=== PATIENT | female | born 1925 | race Caucasian/White ===

== ENCOUNTER 2016-05-22 01:07 | Inpatient (IN) | payer OTHER ==
[~2016-05-22] VITALS: Ht 154.9 cm; Wt 77.1 kg
[~2016-05-22 01:07] MED LIST: AMLODIPINE BESYL5 M1 PO; ASPIRIN EC81 M1 PO; CLARITIN-D 241 EACH PO; DIOVAN320 M1 PO; MYRBETRIQ50 M1 PO; VICODIN 5-3001 EACH PO
[2016-05-22] MEDS ORDERED: DILAUDID2 M1 PO (13:13)
[2016-05-22] MEDS ORDERED: COLACE100 M1 PO (13:14)
[2016-05-22] MEDS ORDERED: MIRALAX17 G1 PO (13:14)
[2016-05-22] MEDS ORDERED: PRILOSEC OTC20 M1 PO (13:15)
[2016-05-22] MEDS ORDERED: ASPIRIN EC325 M2 PO (13:15)
--- NOTE | 2016-05-22 13:21 | Patient Discharge Instructions ---
Discharge Instructions General Discharge Information You were seen/treated for: RIGHT HIP PAIN You had these procedures: RIGHT HIP REPLACEMENT Watch for these problems: TEMP. GREATER THAN 101.5, SWELLING , REDNESS, DRAINAGE FROM INCISION. INCREASED PAIN OR INABILITY TO AMBULATE. Do not soak the wound: Yes Daily wet to dry dressings: No No bath, but you may shower: Yes Special Instructions: KEEP WOUND/ DRESSING DRY Diet Continue normal diet: Yes Recommended Diet: Regular DAILY Calorie limit of: 10 Activity Full Activity/No Limits: Yes Activity Self Limited: No Pounds, do NOT lift more than: 10 Activity Limited to: Weight bear as tolerated Acute Coronary Syndrome Inclusion Criteria At DC or during hospital stay patient has or had the following: ACS DIAGNOSIS No Discharge Core Measures Meds if any: Prescribed or Continued at Discharge Meds if any: NOT Prescribed or Continued at Discharge Congestive Heart Failure Inclusion Criteria At DC or during hospital stay patient has or had the following: CHF DIAGNOSIS No Discharge Core Measures Meds if any: Prescribed or Continued at Discharge Meds if any: NOT Prescribed or Continued at Discharge Cerebrovascular accident Inclusion Criteria At DC or during hospital stay patient has or had the following: CVA/TIA Diagnosis No Discharge Core Measures Meds if any: Prescribed or Continued at Discharge Meds if any: NOT Prescribed or Continued at Discharge Venous thromboembolism Inclusion Criteria VTE Diagnosis No VTE Type NONE VTE Confirmed by (Test) NONE Discharge Core Measures - Per Current guidelines, there needs to be overlap - treatment for the first 5 days of Warfarin therapy. - If discharged on Warfarin prior to 5 days of - overlap therapy, the patient will need to be - assessed for post discharge needs including - *Post discharge parental anticoagulation - *Warfarin and/or parental anticoagulation education - *Follow up date to check INR post discharge At least 5 days overlap therapy as Inpatient No Meds if any: Prescribed or Continued at Discharge Warfarin No Note: Overlap Therapy is Warfarin and Anticoagulant Meds if any: NOT Prescribed or Continued at Discharge
--- NOTE | 2016-05-22 13:25 | Admission Core Measures ---
Admission Meds I reviewed the following Meds: Current Medications Sig/Yamini Start time Last Medication Dose Stop Time Status Admin Acetaminophen 975 MG ONE 05/22 AC (Tylenol) 05/22 2358 Amlodipine Besylate 5 MG DAILY 05/23 999 AC (Norvasc) Cefazolin Sodium 2,000 MG ONE 05/22 NR (Kefzol-Ancef Inj) 05/22 2358 Loratadine 10 MG DAILY 05/23 999 AC (Claritin) Losartan Potassium 100 MG DAILY 05/23 999 AC (Cozaar) Mirabegron 50 MG DAILY 05/23 1000 AC (Myrbetriq) Oxycodone HCl 10 MG ONE 05/22 AC (Roxicodone) 05/22 2358 Acute Coronary Syndrome Inclusion Criteria ACS Diagnosis No Inpatient Core Measures LDL Reminder: If No, please order W/I first 24hr of stay Congestive Heart Failure Inclusion Criteria CHF Diagnosis No Cerebrovascular accident Inclusion Criteria CVA/TIA Diagnosis No Inpatient Core Measures Bedside Swallow Eval Reminder: If BSE failed, place ST order Antithrombotic Reminder: Order Antithrombotic Medication by end of day 2 Antithrombotic Reminder: Document Reason Antithrombotic Not ordered by end of day 2 AFIB/Flutter Reminder: If Present, add to problem list AFIB/Flutter Reminder: Order Anticoag Medication for pts with AFIB/Flutter Atherosclerosis Reminder: If Present, add to problem list LDL Reminder: If No, please order W/I first 24hr of stay PT Order Reminder: If No, please order Venous thromboembolism Inpatient Core Measures VTE Risk Factors: Age > 40, Surgery No [facility] VTE prophylaxis d/t No contraindications No VTE Pharm Prophylaxis d/t No contraindications Inclusion Criteria - Per Current guidelines, there needs to be overlap - treatment for the first 5 days of Warfarin therapy. - Parenteral Anticoagulation (IV or SC) needs to be - given along with Warfarin therapy. VTE Diagnosis No VTE Type NONE VTE Confirmed by (Test) NONE Problem List As ranked by this Provider includes Assessment & Plan 1. Unilateral primary osteoarthritis, right hip HOME MEDS Home Med List Amlodipine Besylate 5 MG TABLET 1 TAB PO DAILY HTN (Reported) Aspirin (Ecotrin*) 81 MG TABLET.DR 1 TAB PO DAILY PROPHO (Reported) Hydrocodone/Acetaminophen (Vicodin 5-300 MG Tablet) 5 MG-300 MG TABLET 1 TAB PO Q4-6 PRN PAIN (Reported) Loratadine/Pseudoephedrine (Claritin-D 24 Hour Tablet) 10 MG-240 MG TAB.ER.24H 1 TAB PO DAILY ALLERGIES (Reported) Mirabegron (Myrbetriq) 50 MG TAB.ER.24H 1 TAB PO DAILY URINARY INCONTINENCE ( Reported) Valsartan (Diovan) 320 MG TABLET 1 TAB PO DAILY HTN (Reported)
--- NOTE | 2016-05-22 13:32 | Surgical Discharge Summary ---
Visit Information Visit Dates Admission Date: 05/22/16 Discharge Date: 05/25/16 History of Present Illness Chief Complaint: 89 Y O FEMALE WITH OA PRESENTED FOR ELECTIVE HIP REPLACEMENT Surgical History Pertinent Surgical History: non-contributory Review of Systems: SEE h&p Hospital Course Course Attending Physician: ANGELA BAXTER MD Primary Care Physician: MELANI BLEVINS,[facility] Course: 89 Y O FEMALE WITH OA RIGHT HIP PRESENTED FOR ELECTIVE HIP REPLACEMENT HER HOSPITAL COURSE WAS UNCOMPLICATED. SHE WAS HEMODYNAMICALLY STABLE WITH ACCEPTABLE VITAL SIGNS.HER DIET WAS PROGRESSED TO SOLID FOOD WHICH SHE TOLERATED WELL.SHE WAS VOIDING SPONTANEOUSLY. HER PAIN WAS CONTROLLED WITH ORAL dILAUDID.PATIENT'S HIP INCISION WAS C/D/I .THERE WAS NO DRAINAGE OR ERYTHREMA . NEUROVASCULAR ASESSMENT WAS WNL.pOST OP CBC IS UNREMARKABLE. PATIENT WAS EVALUATED BY PHYSICAL THERAPY FOR DISCHARGE DISPOSITION.PT. IS SLOW TO MOBILIZE, REQUIRES ASSISSTANCE OF 2 WITH BELOW BASELINE ACTIVITY.sHE REQUIRES SHORT TERM REHAB. TO INCREASE STRENGTH AND ENDURANCE. Allergies: Coded Allergies: Sulfa (Sulfonamide Antibiotics) (CHILDHOOD 05/19/16) Disposition Summary Disposition Principal Diagnosis: R HIP UNILATERAL PRIMARY OSTEOARTHRITIS Additional Diagnosis: NONE Discharge Disposition: SNF Discharge Instructions General Discharge Information Code Status: Full Code Patient's Diet: REGULAR, ADVANCE TOLERATED Patient's Activity: AMBULATE TOLERATED, WEIGHT BEARING TOLERATED Follow-Up Instructions/Appts: F/U IN [address] BAXTER Medications at Discharge Discharge Medications: Stop taking the following medications: Aspirin (Ecotrin*) 81 MG TABLET.DR ORAL DAILY Hydrocodone/Acetaminophen (Vicodin 5-300 MG Tablet) 5 MG-300 MG TABLET ORAL EVERY 4-6 HOURS as needed for PAIN Continue taking these medications: Mirabegron (Myrbetriq) 50 MG TAB.ER.24H 1 Tablet ORAL DAILY Valsartan (Diovan) 320 MG TABLET 1 Tablet ORAL DAILY Amlodipine Besylate (Amlodipine Besylate) 5 MG TABLET 1 Tablet ORAL DAILY Loratadine/Pseudoephedrine (Claritin-D 24 Hour Tablet) 10 MG-240 MG TAB.ER.24H 1 Tablet ORAL DAILY Start taking the following new medications: Hydromorphone HCl (Dilaudid) 2 MG TABLET 1-2 Tablet ORAL EVERY 4 HRS as needed for NEEDED FOR PAIN Qty = 36 No Refills Docusate Sodium (Colace) 100 MG CAPSULE 1 Capsule ORAL TWICE DAILY Qty = 14 No Refills Polyethylene Glycol 3350 (Miralax) 17 GRAM POWD.PACK 1 Packet ORAL DAILY Qty = 7 No Refills Instructions: dissolve in water Aspirin (Ecotrin*) 325 MG TABLET.DR 1 Tablet ORAL TWICE DAILY Qty = 60 No Refills Omeprazole Magnesium (Prilosec Otc) 20 MG TABLET.DR 1 Tablet ORAL DAILY Qty = 30 No Refills
--- NOTE | 2016-05-22 15:04 | RADIOLOGY REPORT ---
EXAMINATION: XR HIP, RIGHT CLINICAL INFORMATION: Status post right hip replacement. COMPARISON: None TECHNIQUE: Two views of the right hip. FINDINGS: Status post right hip replacement. Orthopedic components in alignment. Surgical suture in the soft tissues around the hip. There is some air in the soft tissue related to the recent surgery. IMPRESSION: Status post right hip replacement.
[2016-05-22 16:00] VITALS: BP 124/64
--- NOTE | 2016-05-22 16:00 | NUR ---
PT ARRIVED FROM PACU AT 1600 VIA STRETCHER. UPON ASSESSMENT, PT A/V/OX3. ON RA, LUNGS CLEAR. SKIN INTACT. DRESSING TO R HIP INTACT, HEMOVAC IN PLACE. +PULSES, +CMS. PAIN /10. ICE TO R HIP. DAKOTAH DC'D AT 1530, DTV [phone]. VITAL SIGNS STABLE. #22 TO RW WITH D51/2NS @75 INFUSING PER EMAR. ORIENTED TO CALL RECINOS, ROOM & SURROUNDINGS. WILL CONTNUE TO MONITOR.
--- NOTE | 2016-05-22 16:01 | Operative Report ---
Operative/Inv Procedure Report Surgery Date: 05/22/16 Name of Procedure: Right total hip replacement Pre-Operative Diagnosis: Primary right hip DJD Post-Operative Diagnosis: Same Estimated Blood Loss: 250 Surgeon/Composite Worker: VEE BLEVINS,ANGELA Stewart Anesthesia: block Operative/Procedure Note Note: Description of Procedure: The patient was taken to the operating room and positively identified. After induction of spinal anesthesia and administration of appropriate pre-operative antibiotics, the patient was positioned supine on the operating room table and all bony prominences were well padded. After performing a surgical timeout, the right lower extremity was prepped and draped in the usual sterile fashion. A direct anterior approach was made to the right hip. The incision was carried sharply through superficial soft tissues to the level of the fascia. Meticulous hemostasis was maintained with Bovie electocautery. The fascia over the tensor fascia sky muscle was opened sharply and the interval between the TFL and the sartorius was entered bluntly taking care to stay lateral to the lateral femoral cutaneous nerve. Retractors were placed around the femoral neck and the pericapsular fat was identified. The ascending branches of the lateral femoral circumflex vessels were identified and carefully coagulated. The pericapsular fat and anterior capsule were then resected. A napkin ring osteotomy was performed and the femoral head was removed without difficulty. Attention was then turned to the acetabulum. After appropriate placement of retractors, the acetabulum was exposed. Soft tissue was cleaned from the acetabular margin and notch. Overhanging osteophytes were removed and the teardrop was exposed. The acetabulum was then sequentially reamed to accept a 54 mm Ted Tritanium hemispherical cluster hole shell. This was impacted into place in the appropriate position and fitted with a 36 mm Trident X3 zero degree polyethylene insert. Attention was then turned to the femur. After performing the appropriate ligament releases, the proximal femur was exposed. It was then sequentially broached to accept a size 5 Ted accolade 2 stem. This was trialed for leg length and stability. The trial component was removed and the final component was impacted into place. The trunnion was carefully cleaned and fit with a 36 mm, -5 Biolox delta ceramic femoral head. The hip was reduced and put through a full range of motion and found to be stable. The articular space was then irrigated with sterile saline. The periarticular soft tissues were infilitrated with Marcaine. The fascial layer was closed with interrupted #1 vicryl suture and the skin was re-approximated with interrupted 2 -0 vicryl. The skin was closed with a running 3-0 V-Lock suture. Steri-strips and a sterile dressing were applied. The patient was awakened and taken to the recovery room in satisfactory condition.
--- NOTE | 2016-05-22 16:18 | PN- Orthopedic ---
Subjective Subjective: Postop check: Patient arrives to the floor, she is comfortable, pain-free. No nausea no vomiting. No chest pain or shortness of breath. Objective Vital Signs and I&Os Vital signs stable, afebrile Physical Exam: Well-developed well-nourished no apparent distress. HEENT: Atraumatic, extraocular motion intact Neck: Supple, no lymphadenopathy Respiratory: No respiratory distress Extremities: No edema RIGHT lower extremity hip dressing in place, Hemovac in place Dressing clean dry and intact Mild thigh edema No shortening or rotation Hip range of motion is limited and without unexpected pain Neurovascularly intact distally Bilateral calves are supple, nontender. Neuro: Alert and oriented x3 Psych: Mood affect normal, normal memory normal judgment. Skin: Warm and dry, no rash on exposed skin Assessment/Plan Assessment/Plan Postoperative day #0 status post right total hip arthroplasty, anterior approach. -Orthopedically stable -Weightbearing as tolerated with physical therapy, out of bed as tolerated. -GI prophylaxis-Prilosec -Aspirin for DVT prophylaxis -alps for DVT prophylaxis -Pain medication as needed -Ancef 2 more doses for infectious prophylaxis -Pull Hemovac drain tomorrow -Check labs in a.m. -Anticipate [facility] facility transfer in 2-3 days Core Measures/Miscellaneous Venous Thromboembolism VTE Risk Factors: Age > 40, Surgery VTE Contraindications: No Contraindications VTE Diagnosis: No VTE Type: NONE VTE Confirmed by (Test): NONE Beta Shawna Is Beta Shawna a Home Med? No Antibiotics Is Patient on Antibiotics? Yes If Yes: prophylaxis
[2016-05-22 18:11] VITALS: BP 130/70
[2016-05-22 20:10] VITALS: BP 136/78
--- NOTE | 2016-05-22 22:46 | NUR ---
PT DTV BY [phone]. PT NOTED TO BE INCONTINENT OF URINE AT 2200. PT PUT ON BED ERNST BUT UNABLE TO VOID AGAIN, BLADDER SCAN REVEALED 100ML. PT STATES THAT AT HOME SHE IS UNABLE TO MAKE IT TO THE BATHROOM AND OFTEN VOIDS IN HER PADS. SURG PA AWARE. WILL CONTINUE TO MONITOR.
[2016-05-22 22:50] VITALS: BP 134/70
[2016-05-23 01:55] VITALS: BP 124/66
[2016-05-23 06:00] VITALS: BP 116/70
--- NOTE | 2016-05-23 07:35 | PN- Orthopedic ---
Subjective Subjective: 89-year-old female, postoperative day 1 status post right total hip replacement, anterior approach. She has mild complaints of right hip pain as expected. She has not had a bowel movement yet, she is voiding normally. She has yet to be up with physical therapy. She denies any chest pain abdominal pain nausea or vomiting. No fever or flulike illness. Objective Vital Signs and I&Os Vital Signs Date Time Temp Pulse Resp B/P Pulse O2 O2 Flow FiO2 Ox Delivery Rate 05/23 0600 98.7 84 18 116/70 91 Room Air 05/23 0155 98.3 82 16 124/66 91 Room Air 05/22 2250 98.2 89 20 134/70 93 Room Air 05/22 2010 98.5 87 20 136/78 94 Room Air 05/22 1811 97.9 88 18 130/70 93 Room Air 05/22 1600 97.9 83 18 124/64 92 Room Air Intake & Output 05/23 0800 05/23 0000 04/10 1600 05/22 0800 05/22 0000 09 1600 Intake Total 890 1080 Output Total 80 100 Balance 810 980 Intake, IV 650 600 Intake, Oral 240 480 Number 0 Bowel Movements Output, 80 100 Drainage Patient 170 lb 170 lb Weight Physical Exam: Well-developed well-nourished no apparent distress. HEENT: Atraumatic, extraocular motion intact Neck: Supple, no lymphadenopathy Respiratory: No respiratory distress Extremities: No edema RIGHT lower extremity hip dressing in place, Dressing clean dry and intact with minimal bloody staining Mild thigh edema No signs of infection. No shortening or rotation Hip range of motion is limited and without unexpected pain Neurovascularly intact distally Bilateral calves are supple, nontender. Neuro: Alert and oriented x3 Psych: Mood affect normal, normal memory normal judgment. Skin: Warm and dry, no rash on exposed skin Hemovac drain in place, this was removed without difficulty Results Last 48 Hours of Labs: Labs pending this morning Assessment/Plan Assessment/Plan Postoperative day #1 status post right total hip arthroplasty, anterior approach. -Orthopedically stable -Weightbearing as tolerated with physical therapy, out of bed as tolerated. -GI prophylaxis-Prilosec -Aspirin for DVT prophylaxis -alps for DVT prophylaxis -Pain medication as needed -Ancef completed -Hemovac drain removed -Follow labs this a.m. -Anticipate alf facility transfer in 1-2 days Core Measures/Miscellaneous Venous Thromboembolism VTE Risk Factors: Age > 40, Surgery VTE Contraindications: No Contraindications VTE Diagnosis: No VTE Type: NONE VTE Confirmed by (Test): NONE Beta Shawna Is Beta Shawna a Home Med? No Antibiotics Is Patient on Antibiotics? Yes If Yes: prophylaxis
[2016-05-23 07:59] LABS: ABSOLUTE BASOPHIL COUNT 0 /CUMM (0.0-0.2); ABSOLUTE EOSINOPHIL COUNT 0 /CUMM (0.0-0.7); ABSOLUTE LYMPH COUNT 0.8 /CUMM (1.2-3.4); ABSOLUTE MONOCYTE COUNT 0.6 /CUMM (0.10-0.60); BASOPHIL % 0 % (0.0-2.0); EOSINOPHIL % 0.1 % (0-5); GRANULOCYTE % 86.3 % (42.2-75.2); HEMATOCRIT 31.6 % (37-47); MEAN CORPUSCULAR HGB 28.9 PG (27.0-31.0); MEAN CORPUSCULAR HGB CONC 33.5 G/DL (33.0-37.0); MEAN CORPUSCULAR VOLUME 86.2 FL (81.0-99.0); MEAN PLATELET VOLUME 6.7 FL (7.4-10.4); PLATELET COUNT 233 /CUMM (130-400); RBC DISTRIBUTION WIDTH 13.6 % (11.5-14.5); RED BLOOD CELL CT 3.67 /CUMM (4.20-5.40); WHITE BLOOD CELL COUNT 10.5 /CUMM (4.8-10.8)
--- NOTE | 2016-05-23 12:00 | NUR ---
Physical Therapy: Attempted to see patient this morning for Evaluation. Pt was refusing mobilization with nursing all morning. When attempted to see her for IE she refused as well. Pt was well educated about implications for P.T. and importance of mobility julio post op. Pt continues to refuse. Surgical PAs made aware. Will follow up as appropriate. Thank you.
[2016-05-23 14:32] VITALS: BP 120/80
[2016-05-23 22:26] VITALS: BP 130/70
[2016-05-24 06:43] VITALS: BP 140/76
--- NOTE | 2016-05-24 07:15 | PN- Orthopedic ---
Subjective Subjective: POD#2 S/P RIGHT JUAN RESTING COMFORTABLY NO MAJOR COMPLAINTS DENIES CP, SOB, NO N+V TIH DIET Objective Vital Signs and I&Os Vital Signs Date Time Temp Pulse Resp B/P Pulse O2 O2 Flow FiO2 Ox Delivery Rate 05/24 0643 98.9 90 18 140/76 91 Room Air 05/23 2226 98.1 98 20 130/70 90 Room Air 05/23 1432 98.2 94 20 120/80 92 05/23 1004 Room Air 05/23 0859 80 120/74 Intake & Output 05/24 0800 05/24 0000 05/23 1600 05/23 0800 05/23 0000 05/22 1600 Intake Total 120 600 764 330 8739 Output Total 80 100 Balance 120 600 950 810 980 Intake, IV 300 650 600 Intake, Oral 120 600 650 240 480 Number 0 0 Bowel Movements Output, 80 100 Drainage Patient 170 lb 170 lb Weight Physical Exam: CV: RRR LUNGS: CLEAR ABD: SOFT, +BS EXT: DRSG CHANGED, WOUND C/D/I THIGH SOFT NO CALF TENDERNESS BILAT DISTAL CMS INTACT Assessment/Plan Assessment/Plan ORTHO STABLE PLAN ASA/ALPS FOR DVT PROPHYLAXIS OOB WITH PT/STAIRS HOME V REHAB PENDING, SLOW WITH PT Core Measures/Miscellaneous Venous Thromboembolism VTE Risk Factors: Age > 40, Surgery VTE Contraindications: No Contraindications VTE Diagnosis: No VTE Type: NONE VTE Confirmed by (Test): NONE Beta Shawna Is Beta Shawna a Home Med? No Antibiotics Is Patient on Antibiotics? Yes If Yes: prophylaxis
--- NOTE | 2016-05-24 14:15 | Operative Report ---
Operative/Inv Procedure Report Surgery Date: 05/24/16 Name of Procedure: Right total hip replacement Pre-Operative Diagnosis: Primary right hip DJD Post-Operative Diagnosis: Same Estimated Blood Loss: 250 Surgeon/Traffic Law Attorney: VEE BLEVINS,ANGELA Stewart Anesthesia: block Operative/Procedure Note Note: Description of Procedure: The patient was taken to the operating room and positively identified. After induction of spinal anesthesia and administration of appropriate pre-operative antibiotics, the patient was positioned supine on the operating room table and all bony prominences were well padded. After performing a surgical timeout, the right lower extremity was prepped and draped in the usual sterile fashion. A direct anterior approach was made to the right hip. The incision was carried sharply through superficial soft tissues to the level of the fascia. Meticulous hemostasis was maintained with Bovie electocautery. The fascia over the tensor fascia sky muscle was opened sharply and the interval between the TFL and the sartorius was entered bluntly taking care to stay lateral to the lateral femoral cutaneous nerve. Retractors were placed around the femoral neck and the pericapsular fat was identified. The ascending branches of the lateral femoral circumflex vessels were identified and carefully coagulated. The pericapsular fat and anterior capsule were then resected. A napkin ring osteotomy was performed and the femoral head was removed without difficulty. Attention was then turned to the acetabulum. After appropriate placement of retractors, the acetabulum was exposed. Soft tissue was cleaned from the acetabular margin and notch. Overhanging osteophytes were removed and the teardrop was exposed. The acetabulum was then sequentially reamed to accept a 50 mm Ted Tritanium hemispherical solid back shell. This was impacted into place in the appropriate position and fitted with a 32 mm Trident X3 zero degree polyethylene insert. Attention was then turned to the femur. After performing the appropriate ligament releases, the proximal femur was exposed. It was then sequentially broached to accept a size 2 [place] accolade 2 stem. This was trialed for leg length and stability. The trial component was removed and the final component was impacted into place. The trunnion was carefully cleaned and fit with a 32 mm, +4 Biolox delta ceramic femoral head. The hip was reduced and put through a full range of motion and found to be stable. The articular space was then irrigated with sterile saline. The periarticular soft tissues were infilitrated with Marcaine. The fascial layer was closed with interrupted #1 vicryl suture and the skin was re-approximated with interrupted 2 -0 vicryl. The skin was closed with a running 3-0 V-Lock suture. Steri-strips and a sterile dressing were applied. The patient was awakened and taken to the recovery room in satisfactory condition.
[2016-05-24 14:18] VITALS: BP 125/62
[2016-05-24 22:50] VITALS: BP 118/60
--- NOTE | 2016-05-25 06:00 | NUR ---
CALLED TO ROOM BY CONCETTA HENDRICKSON. PT 02 SAT 85% ON RA. PLACED ON 2L NC 02 SAT 88%. PT HAS NO OTHER COMPLAINTS AT THIS TIME. RESPIRATORY CALLED TO BEDSIDE AND PLACED ON 4L NC O2 SAT NOW 97%.
[2016-05-25 06:51] VITALS: BP 110/60
--- NOTE | 2016-05-25 08:09 | PN- Orthopedic ---
Subjective Subjective: PT. REPORTS HAVING RESTFUL NIGHT. SHE DID NOT REQUIRE PAIN MED. AT NIGHT, BUT USED DILAUDID LAST EVENINMG WITH GOOD PAIN CONTROL. REPORTS THAT STILL REQUIRES HELP WITH AMBULATION. NO DYSPNEA OR CHEST PAIN Review of Systems: SEE H&P Objective Vital Signs and I&Os Vital Signs Date Time Temp Pulse Resp B/P Pulse O2 O2 Flow FiO2 Ox Delivery Rate 05/25 0651 98.1 68 20 110/60 99 Nasal 4.0L Cannula 05/25 0634 97 Nasal 2.0L Cannula 05/24 2250 98.0 79 20 118/60 96 Room Air 05/24 1418 98.0 77 20 125/62 97 05/24 0947 76 140/72 Intake & Output 05/25 0800 05/25 0000 05/24 1600 05/24 0800 05/24 0000 05/23 1600 Intake Total 650 120 600 950 Output Total Balance 650 120 600 950 Intake, IV 300 Intake, Oral 650 120 600 650 Number 0 Bowel Movements ALERT, ORIENTED, NO DISTRESS HEART;REGULAR LUNGS FEW BASILAR CRACKLES ON R BASE ABDOMEN; BENIGN R HIP DRESSING C/D/I.NO ERYTHRTEMA OR DRAINAGE. STERI STRIPS INTACT ARIC LE WITH GOOD DISTAL PERFUSION , NEUROVASCULARLY INTACT. NO CLVES PAINS OR TENDERNESS Assessment/Plan Assessment/Plan R HIP OA, S/P R JUAN POD#3 HEMODYNAMICALLY STABLE, STABLE VITAL SIGNS R HIP INCISION WITHOUT SIGNS OF IONFECTION GOOD DISTAL NEROVASCULAR PERFUSION LIKELY HAS BASILAR ATELECTASIS, ENCOURAGE INCENTIVE SPIROMRTER. WILL ASSESS SATS ON ROOM AIR OVERALL SLOW TO MOBILIZE, REQUIRED ASSSISSTANCE OF 2 YESTERDAY. EVALUATED BY PT.PLAN FOR DISCHARGE TO [facility] TODAY Core Measures/Miscellaneous Venous Thromboembolism VTE Risk Factors: Age > 40, Surgery VTE Contraindications: No Contraindications VTE Diagnosis: No VTE Type: NONE VTE Confirmed by (Test): NONE Beta Shawna Is Beta Shawna a Home Med? No Antibiotics Is Patient on Antibiotics? No
[2016-05-25 13:04] VITALS: BP 130/72
== END 2016-05-25 14:00 | DRG 470 ==
LOC: ENRESERVDT → ENRESERVTM → SDA 01:07 → 2NA 01:07 → ENPENDDIS 01:07 → 2NA 16:18
PROVIDERS: Physician Assistant Surgical; ADMIT Orthopaedic Surgery
PROC: 0SR904A Replacement of Right Hip Joint with Ceramic on Polyethylene Synthetic Substitute, Uncemented, Open Approach (ICD-10-PCS; principal; 2016-05-22)
DX: M16.11 Unilateral primary osteoarthritis, right hip (principal); M51.06 Intervertebral disc disorders with myelopathy, lumbar region; I10 Essential (primary) hypertension; K44.9 Diaphragmatic hernia without obstruction or gangrene; E78.2 Mixed hyperlipidemia
CPT/HCPCS: 2NAP; 2NASP; 73502-RT; 82436; 88304; 97110-GO; 97116-GO; 97161-GP; 97530-GO; J0690; J2405; J2550; J3490; J7042